=== PATIENT | female | born 1940 | race Caucasian/White ===

== ENCOUNTER 2019-08-14 09:22 | Outpatient (CLI) | payer OTHER, SELFPAY ==
--- NOTE | ~2019-08-14 | MM_ITS ---
EXAMINATION: MM screening [facility] w [facility] HISTORY: Screening mammogram TECHNIQUE: Craniocaudal and mediolateral oblique 3-D tomosynthesis images were obtained and synthetic 2-D images were generated. CAD analysis was submitted and interpreted. COMPARISON: 08/09/2018, 08/07/2017, 08/04/2016 bilateral digital screening mammogram examinations BREAST PARENCHYMAL COMPOSITION: There are scattered areas of fibroglandular density. FINDINGS: There is no evidence of suspicious mass, calcification, or architectural distortion to sugg est malignancy in either breast. There has been no suspicious interval change. IMPRESSION: 1. No mammographic evidence of malignancy. 2. Recommend routine screening mammography in one year. BI-RADS Category 1: Negative Reviewed, dictated and finalized at location A.
== END 2019-08-14 09:23 | disposition home or self-care (01) ==
DX: Z12.31 Encounter for screening mammogram for malignant neoplasm of breast (principal)
CPT/HCPCS: 77063; 77067

== ENCOUNTER 2020-09-14 10:25 | Outpatient (CLI) | payer OTHER, SELFPAY ==
--- NOTE | ~2020-09-14 | MM_ITS ---
EXAMINATION: MM screening [facility] BI w [facility]bin HISTORY: Screening mammogram TECHNIQUE: Craniocaudal and mediolateral oblique 3-D tomosynthesis images were obtained and synthetic 2-D images were generated. CAD analysis was submitted and interpreted. COMPARISON: 08/14/2019, 08/09/2018, 08/07/2017 BREAST PARENCHYMAL COMPOSITION: The breasts are heterogeneously dense, which may obscure small masses . FINDINGS: There is no evidence of suspicious mass, calcification, or architectural distortion to sugg est malignancy in either breast. There has been no suspicious interval change. IMPRESSION: 1. No mammographic evidence of malignancy. 2. Recommend routine screening mammography in one year. BI-RADS Category 1: Negative Reviewed, dictated and finalized at location A.
== END 2020-09-14 10:26 | disposition home or self-care (01) ==
LOC: ANHIMG 10:28
DX: Z12.31 Encounter for screening mammogram for malignant neoplasm of breast (principal)
CPT/HCPCS: 77063; 77067

== ENCOUNTER → 2021-01-03 07:36 | Outpatient (CLI) | payer OTHER, SELFPAY ==
--- NOTE | ~2021-01-03 | US_ITS ---
EXAMINATION: US retroperitoneal comp DATE: 01/03/2021 08:14 INDICATION: Chronic kidney disease TECHNIQUE: Multiple grayscale and Doppler ultrasound images of the kidneys were obtained. COMPARISON: None. FINDINGS: The right kidney measures 9.0 x 4.9 x 5.3 cm. The left kidney measures 8.0 x 3.8 x 3.6 cm. The kidneys demonstrate normal parenchymal echogenicity. There is no hydronephrosis. The bladder is n ormal. IMPRESSION: 1. Mild atrophy of the kidneys. Reviewed, dictated and finalized at location A.
== END ==
DX: N18.4 Chronic kidney disease, stage 4 (severe) (principal)
CPT/HCPCS: 76770

== ENCOUNTER 2021-10-19 13:39 | Outpatient (CLI) | payer OTHER, SELFPAY ==
--- NOTE | ~2021-10-19 | XR_ITS ---
EXAMINATION: XR chest 2V 10/19/2021 14:09 INDICATION: Shortness of breath PROCEDURE: 2 view chest COMPARISON: 08/21/2013 FINDINGS: The lungs are clear. The cardiomediastinal silhouette is within normal limits. There are no pleural effusions. There is no pneumothorax suspected. IMPRESSION: 1: NO ACUTE CARDIOPULMONARY DISEASE. Reviewed, dictated and finalized at location A.
== END 2021-10-19 13:40 ==
DX: R06.02 Shortness of breath (principal)
CPT/HCPCS: 71046

== ENCOUNTER 2021-11-04 19:25 | Emergency (ER) | payer OTHER, SELFPAY ==
[2021-11-04 19:35] VITALS: BP 183/91; PULSE 101; RESP 18; TEMP 36.7; O2SAT 100
--- NOTE | 2021-11-04 20:13 | PC.NURSE ---
Pt family came to nurses station and requested to leave before covid results. Dr. Gaxiola notified and stated he would speak to patient and family prior to letting them go. ETA of 5-10 min.
--- NOTE | 2021-11-04 20:21 | ED.GENADULT ---
HPI - General Adult General Chief complaint: Unspecified Stated complaint: wants covid test for air flight Time Seen by Provider: 11/04/21 19:39 History of Present Illness HPI narrative: 81-year-old female presented to the emergency department for a COVID test. Patient had COVID 1 month ago. Patient denies any complaints at this time. Patient [place] and the patient needed a negative PCR COVID test. Related Data Allergies Allergy/AdvReac Type Severity Reaction Status Date / Time iodine Allergy Intermediate itching Verified 11/04/21 19:39 aspirin Allergy Unknown STOMACH Verified 11/04/21 19:39 HURTS oxycodone Allergy Unknown Unknown Verified 11/04/21 19:39 codeine AdvReac Unknown makes me Verified 11/04/21 19:39 pass out Review of Systems Review of Systems: CONSTITUTIONAL: Denies fever, chills, or sweats. EYES: Denies visual changes, redness, or discharge. ENT: Denies rhinorrhea, congestion, sore throat, or otalgia. CARDIOVASCULAR: Denies chest pain, palpitations, or edema. RESPIRATORY: Denies cough or dyspnea. GASTROINTESTINAL: Denies abdominal pain, nausea, vomiting, or diarrhea. GENITOURINARY: Denies dysuria or hematuria. SKIN: Denies rash or itching. MUSCULOSKELETAL: Denies back pain, joint pain, or myalgia. NEUROLOGIC: Denies headache, numbness, or weakness. Exam Narrative: APPEARANCE: Well appearing, no pain, no distress, well-nourished. HEAD: normocephalic, atraumatic. EYES: PERRLA/EOMI, conjunctivae clear. NOSE: Normal no drainage NECK: Supple. No adenopathy, no masses. RESPIRATORY: Airway patent, respirations nonlabored. Clear to auscultation bilaterally, no rales, rhonchi, wheezing. CARDIOVASCULAR: Regular rate and rhythm without murmurs rubs or gallops. ABDOMINAL: Soft, nontender, nondistended, normal bowel sounds MUSCULOSKELETAL: Moves all extremities. Strength/ROM intact, No edema, No calf tenderness. NEURO: Alert. Cranial nerves II through XII intact. Grossly intact SKIN: Warm, dry. Normal Color Course Course Emergency Course: COVID was negative. Patient and family were updated. Vital Signs Vital signs: Vital Signs Temperature 98.1 F 11/04/21 19:35 Pulse Rate 101 H 11/04/21 19:35 Respiratory Rate 18 11/04/21 19:35 Blood Pressure 183/91 H 11/04/21 19:35 Pulse Oximetry 100 11/04/21 19:35 Oxygen Delivery Room Air 11/04/21 19:35 Temperature 98.1 F 11/04/21 19:35 Pulse Rate 101 H 11/04/21 19:35 Respiratory Rate 18 11/04/21 19:35 Blood Pressure 183/91 H 11/04/21 19:35 Pulse Oximetry 100 11/04/21 19:35 Oxygen Delivery Room Air 11/04/21 19:35 Medical Decision Making Vital Signs Vital Signs: Vital Signs Temperature 98.1 F 11/04/21 19:35 Pulse Rate 101 H 11/04/21 19:35 Respiratory Rate 18 11/04/21 19:35 Blood Pressure 183/91 H 11/04/21 19:35 Pulse Oximetry 100 11/04/21 19:35 Oxygen Delivery Room Air 11/04/21 19:35 Temperature 98.1 F 11/04/21 19:35 Pulse Rate 101 H 11/04/21 19:35 Respiratory Rate 18 11/04/21 19:35 Blood Pressure 183/91 H 11/04/21 19:35 Pulse Oximetry 100 11/04/21 19:35 Oxygen Delivery Room Air 11/04/21 19:35 Lab Data Labs: Lab Results 11/04/21 Range/Units 19:46 SARS-CoV-2 RNA (RT-PCR) Negative Discharge Plan Discharge Clinical Impression: Encounter for screening laboratory testing for COVID-19 virus Patient Disposition: Home, Self-Care Condition: Stable Instructions: Antibiotic Form Additional Instructions: Check the [facility] portal for the results of your COVID test Follow-up/Referrals: UNKNOWN,DOCTOR [Primary Care Provider] -
[2021-11-04 20:29] LABS: SARS-CoV-2 RNA PCR Negative
--- NOTE | 2021-11-04 20:48 | PC.NURSE ---
Pt and family requesting d/c papers at nurses station. Pt and family declined d/c vitals at this time. Accepted d/c paper and signed paperwork at nurses station. Pt a&Ox4, resp even non-labored. No distress noted at this time.
== END 2021-11-04 20:49 | disposition home or self-care (01) ==
LOC: ANHED 20:23
PROVIDERS: Physician Assistant; Emergency Provider Emergency Medicine
DX: Z20.822 Contact with and (suspected) exposure to COVID-19 (principal)
CPT/HCPCS: 99283; C9803; U0003; U0005

== ENCOUNTER → 2022-01-11 10:43 | Outpatient (CLI) | payer OTHER, SELFPAY ==
--- NOTE | ~2022-01-11 | XR_ITS ---
XR hip LT min 2V DATE: 01/11/2022 11:02 INDICATION: Left hip pain for one week. No injury. TECHNIQUE: AP and lateral views COMPARISON: None FINDINGS: Degenerative disc disease as evidenced at L4-5 and L5-S1. The pubic symphysis and sacroiliac joints are intact. Mild left hip osteoarthritis. No fracture, dislocation, avascular necrosis or bone destruction of lef t hip. IMPRESSION: Mild left hip osteoarthritis Degenerative disc disease at L4-5 and L5-S1 Reviewed, dictated and finalized at location A.
== END ==
DX: M16.12 Unilateral primary osteoarthritis, left hip (principal); M51.36 Other intervertebral disc degeneration, lumbar region; M51.37 Other intervertebral disc degeneration, lumbosacral region
CPT/HCPCS: 73502

== ENCOUNTER 2023-08-31 12:58 | Outpatient (CLI) | payer OTHER, SELFPAY ==
--- NOTE | ~2023-08-31 | XR_ITS ---
EXAMINATION: XR chest 2V 08/31/2023 13:40 INDICATION: Congestive heart failure PROCEDURE: 2 view chest COMPARISON: 10/19/2021 FINDINGS: The lungs are clear. The cardiomediastinal silhouette is within normal limits. There are no pleural effusions. There is no pneumothorax suspected. IMPRESSION: 1: NO ACUTE CARDIOPULMONARY DISEASE. Reviewed, dictated and finalized at location B.
== END 2023-08-31 12:59 ==
DX: N18.4 Chronic kidney disease, stage 4 (severe) (principal); I50.9 Heart failure, unspecified
CPT/HCPCS: 71046